=== PATIENT | female | born 1940 | race Caucasian/White ===

== ENCOUNTER 2017-05-28 14:41 | Emergency (ER) | payer OTHER, MEDICARE ==
[2017-05-28 14:45] VITALS: BP 143/90; PULSE 91; TEMP 98.5; BMI 21.7
--- NOTE | 2017-05-28 15:00 | PDOC ---
Attending Attestation - Resident Resident Name: Isabella Curiel - ED Attending Attestation I have performed the following: I have examined & evaluated the patient, The case was reviewed & discussed with the resident, I agree w/resident's findings & plan, Exceptions are as noted - HPI HPI: 05/28/17 14:58 76-year-old female with history of CAD s/p cardiac stent, rheumatoid arthritis, TIA on asa, plavix, bilateral total hip replacements, [id number] presents with left thumb subungual hematoma. Patient had accidentally slammed the door onto her left finger. Patient denies any bony tenderness is able to flex and extend her IP joint without difficulties. States that the pain is secondary to the throbbing sensation from the subungual hematoma. This occurred yesterday. 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 - Physicial Exam PE: 05/28/17 14:59 GENERAL: Awake, alert, and fully oriented, in no acute distress. HEAD: No signs of trauma EYES: PERRLA, EOMI, sclera anicteric, conjunctiva clear EXTREMITIES: Normal range of motion, no edema. No clubbing or cyanosis. No cords, erythema, or tenderness LUE: 2+ radial pulse. Sensation intact throughout. 1st digit: no tenderness along the IP or 1st metacarpal head. Brandon to fully flex and extend digit. <2 sec cap refill Approx 1x1 cm subungal hematoma with an intact nail. NEUROLOGICAL: Cranial nerves II through XII grossly intact. Normal speech, normal gait SKIN: Warm, Dry, normal turgor, no rashes or lesions noted. - Medical Decision Making 05/28/17 15:00 Vital Signs Temp Pulse Resp BP Pulse Ox 98.5 F 91 H 18 143/90 97 05/28/17 14:42 05/28/17 14:42 05/28/17 14:42 05/28/17 14:42 05/28/17 14:42 No clinical signs of fracture. We'll perform electrocautery trephination. Supportive care and follow-up primary care physician. 05/28/17 15:20 Trephination was successfully performed.
--- NOTE | 2017-05-28 15:05 | PDOC ---
History of Present Illness - General Chief Complaint: Injury Stated Complaint: LEFT THUMB INJURY Time Seen by Provider: 05/28/17 14:56 - History of Present Illness Initial Comments: 05/28/17 15:03 CC: L 1st digit subungual hematoma Patient is a 76 y.o. female with a PMH of TIA, Hypothyroidism, and CAD who presents with a L 1st digit subungal hematoma after slamming her thumb in a door yesterday (05/27) evening. Patient states she went to open a heavy door with a automatic hinge and she accidentally let go of the door slamming her thumb. Patient denies any difficulty moving her thumb or hand or wrist pain. Patient further denies any fevers, chest pain, shortness of breath or nausea or vomiting. Past History - Past Medical History Allergies/Adverse Reactions: Allergies Allergy/AdvReac Type Severity Reaction Status Date / Time No Known Allergies Allergy Verified 05/28/17 14:42 Home Medications: Ambulatory Orders Aspirin [ASA -] 81 mg PO DAILY 05/28/17 Atorvastatin Ca [Lipitor] 10 mg PO HS 05/28/17 Cholecalciferol (Vitamin D3) [Vitamin D3] 0 unit PO DAILY 05/28/17 Clopidogrel Bisulfate [Plavix -] 75 mg PO DAILY 05/28/17 Cyclosporine [Restasis Multidose] 1 drop OP BID 05/28/17 Fluticasone/Vilanterol [Breo Ellipta 200-25 Mcg INH] 1 inh IH DAILY 05/28/17 Hyoscyamine Sulfate [Hyoscyamine Sulfate ER] 0.375 mg PO BID 05/28/17 Levothyroxine Sodium [Synthroid] 88 mcg PO DAILY 05/28/17 Metoprolol Succinate [Toprol Xl -] 12.5 mg PO DAILY 05/28/17 Metoprolol Succinate [Toprol Xl -] 25 mg PO AM 05/28/17 Ranitidine [Zantac -] 150 mg PO DAILY 05/28/17 Sulfasalazine 500 mg PO BID 05/28/17 Tiotropium [place] [Spiriva] 1 inh PO DAILY 05/28/17 Asthma: Yes Cardiac Disorders: Yes (IRREGULAR HEART BEATS) CVA: Yes (TIA) GI Disorders: Yes Hypercholesterolemia: Yes Thyroid Disease: Yes (HYPO) Other medical history: RHUMATOID ARTHRITIS,DISLOCATED RIGHT TOTAL HIP - Surgical History Abdominal Surgery: Yes (BL HERNIA REPAIR) - Psycho/Social/Smoking Cessation Hx Anxiety: No Suicidal Ideation: No Smoking History: Never smoked Hx Alcohol Use: No Drug/Substance Use Hx: No Substance Use Type: None Review of Systems - Review of Systems Constitutional: No: Chills, Diaphoresis, Fever, Unintentional Wgt. 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 woman who presents with subungal hematoma after slamming her L first digit in a door. Patient was neurovasculary intact on PE, and had full ROM of the affected digit. Trephination of the hematoma was performed using a cautery. Patient was instructed to keep the wound clean and return to the ED should she experience severe pain, noticeable erythema, warmth or discharge. *DC/Admit/Observation/Transfer Diagnosis at time of Disposition: Subungual hematoma of left thumb - Discharge Dispostion Disposition: HOME Condition at time of disposition: Good - Patient Instructions Additional Instructions: You were evaluated and treated today for a subungual hematoma of your L thumb. The hematoma was drained via cautery. Please keep the treated area clean and your nail should grow in normally in 3-4 months. Please return to the Emergency Department if there are any signs of infection including warmth, redness, pain, discharge, fever or severe discomfort.
== END 2017-05-28 15:23 | disposition home or self-care (01) ==
LOC: FER 14:41
PROC: 0H9QXZZ Drainage of Finger Nail, External Approach (ICD-10-PCS; principal; 2017-05-28)
DX: S60.112A Contusion of left thumb with damage to nail, initial encounter (principal); I25.10 Atherosclerotic heart disease of native coronary artery without angina pectoris; E03.9 Hypothyroidism, unspecified; Z86.73 Personal history of transient ischemic attack (TIA), and cerebral infarction without residual deficits; M06.9 Rheumatoid arthritis, unspecified; W20.8XXA Other cause of strike by thrown, projected or falling object, initial encounter; Y93.89 Activity, other specified; Y92.810 Car as the place of occurrence of the external cause; Y99.9 Unspecified external cause status
CPT/HCPCS: 99281-25

== ENCOUNTER 2023-01-15 10:52 | Observation (INO) | payer OTHER, MEDICARE ==
[2023-01-15] MEDS ORDERED: DIPHTH,PERTUSS(ACELL),TET 0.5 ML DISP.SYRIN IM ONE ×2 (11:25→11:48)
[2023-01-15] MEDS ORDERED: ACETAMINOPHEN 500 MG TABLET (FP) PO ONE (11:25)
[2023-01-15] MEDS ORDERED: ACETAMINOPHEN 500 MG TABLET (FP) ONE (11:47)
[2023-01-15] MEDS ORDERED: LIDOCAINE 5% TOPICAL PATCH TP ONE (15:58)
[2023-01-15] MEDS ORDERED: LIDOCAINE 5% TOPICAL PATCH ONE (16:07)
[2023-01-15] MEDS ORDERED: LACTATED RINGERS SOLUTION 1,000 ML IV SCH (18:15)
[2023-01-15 18:29] LABS: HEMATOCRIT 37.6 % (32.4-45.2); HEMOGLOBIN 13.1 GM/dL (10.7-15.3); MCH 30.2 pg (25.7-33.7); MCHC 34.9 g/dl (32.0-36.0); MEAN CELL VOLUME 86.6 fl (80-96); MEAN PLT VOLUME 7.5 fl (7.5-11.1); PLATELET COUNT 144 10^3/uL (134-434); RBC 4.34 M/mm3 (3.60-5.2); RDW 14.6 % (11.6-15.6); WHITE BLOOD COUNT 7.1 K/mm3 (4.0-10.0)
[2023-01-15 19:00] LABS: ALBUMIN 3.6 g/dl (3.4-5.0); BLOOD UREA NITROGEN 16.8 mg/dL (7-18); CALCIUM 8.8 mg/dL (8.5-10.1)
[2023-01-15 19:03] LABS: CREATININE 0.8 mg/dL (0.55-1.3)
[2023-01-15 19:05] LABS: BILIRUBIN,TOTAL 0.7 mg/dL (0.2-1); TOT PROT 6.4 g/dl (6.4-8.2)
[2023-01-15] MEDS ORDERED: ATORVASTATIN CA 80 MG TABLET (FP) ONE (21:56)
[2023-01-15] MEDS: LIDOCAINE PATCH REMOVAL MC SCH (22:06)
[2023-01-15] MEDS: ATORVASTATIN CA 80 MG TABLET (FP) PO SCH (22:06)
[2023-01-15] MEDS ORDERED: ACETAMINOPHEN 325 MG TABLET (FP) ONE (22:11)
[2023-01-15] MEDS: ACETAMINOPHEN 325 MG TABLET (FP) PO PRN (22:24)
[2023-01-16 03:59] VITALS: RESP 20; BMI 19.3
[2023-01-16] MEDS: LEVOTHYROXINE NA 88 MCG TABLET (FP) PO SCH (06:24)
[2023-01-16] MEDS ORDERED: CLOPIDOGREL BISULFATE 75 MG TABLET (FP) PO SCH (10:00)
[2023-01-16] MEDS ORDERED: TIOTROPIUM BROMIDE 2.5 MCG (SPIRIVA) RESPIMAT INHALER IH SCH (10:00)
[2023-01-16 10:26] LABS: BASO % 0.2 % (0-2.0); EOS % 0.2 % (0-4.5); HEMOGLOBIN 13.1 GM/dL (10.7-15.3); LYMPH % 6.1 % (8-40); MCH 29.9 pg (25.7-33.7); MCHC 34.5 g/dl (32.0-36.0); MEAN CELL VOLUME 86.7 fl (80-96); MEAN PLT VOLUME 7.7 fl (7.5-11.1); MONO % 6.3 % (3.8-10.2); NEUT % 87.2 % (42.8-82.8); PLATELET COUNT 137 10^3/uL (134-434); RBC 4.38 M/mm3 (3.60-5.2); RDW 14.8 % (11.6-15.6); WHITE BLOOD COUNT 7.5 K/mm3 (4.0-10.0)
[2023-01-16 10:33] LABS: INR 1.38 (0.83-1.09); PROTHROMBIN TIME (PATIENT) 15.9 SEC (9.7-13.0)
[2023-01-16 10:34] LABS: ACTIVATED PTT 29.8 SECONDS (25.2-36.5)
[2023-01-16] MEDS: FLUTICASONE/UMECLIDIN/VILANTER(200-62.5-25 TRELEGY ELLIPTA) INAHLER IH SCH (10:36)
[2023-01-16] MEDS: metoPROLOL SUCCINATE 25 MG TAB.SR.24H (FP) PO SCH (10:36)
[2023-01-16] MEDS: ENOXAPARIN NA (PORCINE) 40 MG/0.4 ML DISP.SYRIN SQ SCH (10:36)
[2023-01-16] MEDS: PANTOPRAZOLE 40 MG TABLET PO SCH (10:36)
[2023-01-16] MEDS: ASPIRIN 81 MG CHEWABLE TABLETS PO SCH (10:36)
[2023-01-16 10:43] LABS: BLOOD UREA NITROGEN 14.2 mg/dL (7-18); CALCIUM 8.4 mg/dL (8.5-10.1)
[2023-01-16 10:44] LABS: ALBUMIN 3.4 g/dl (3.4-5.0); MAGNESIUM 1.9 mg/dL (1.8-2.4)
[2023-01-16 10:47] LABS: CREATININE 0.5 mg/dL (0.55-1.3); PHOSPHOROUS 2.7 mg/dL (2.5-4.9)
[2023-01-16 10:48] LABS: TOT PROT 6.3 g/dl (6.4-8.2)
[2023-01-16 10:49] LABS: BILIRUBIN,TOTAL 0.9 mg/dL (0.2-1)
[2023-01-16] MEDS: ACETAMINOPHEN 325 MG TABLET (FP) PO PRN (12:47)
[2023-01-16] MEDS: guaiFENesin 200 MG/10 ML 10 ML UNIT-DOSE CUPS PO PRN (12:47)
[2023-01-16] MEDS ORDERED: ETHAMBUTOL HCL 100 MG TABLET PO SCH ×2 (13:15→14:29)
[2023-01-16] MEDS ORDERED: RIFABUTIN 150 MG CAPSULE PO SCH (15:00)
[2023-01-16] MEDS: AZITHROMYCIN 250 MG TABLET PO SCH (15:23)
[2023-01-16] MEDS: ETHAMBUTOL HCL PO SCH (15:23)
[2023-01-16] MEDS ORDERED: ETHAMBUTOL HCL 400 MG TABLET PO SCH (22:00)
[2023-01-16] MEDS: ATORVASTATIN CA 80 MG TABLET (FP) PO SCH (22:19)
[2023-01-16] MEDS: LIDOCAINE PATCH REMOVAL MC SCH (22:22)
[2023-01-17] MEDS: ACETAMINOPHEN 325 MG TABLET (FP) PO PRN (01:29)
[2023-01-17] MEDS: guaiFENesin 200 MG/10 ML 10 ML UNIT-DOSE CUPS PO PRN ×2 (01:30→09:42)
[2023-01-17] MEDS: LEVOTHYROXINE NA 88 MCG TABLET (FP) PO SCH (06:22)
[2023-01-17] MEDS: ETHAMBUTOL HCL PO SCH (09:42)
[2023-01-17] MEDS: ASPIRIN 81 MG CHEWABLE TABLETS PO SCH (09:42)
[2023-01-17] MEDS: AZITHROMYCIN 250 MG TABLET PO SCH (09:42)
[2023-01-17] MEDS: PANTOPRAZOLE 40 MG TABLET PO SCH (09:42)
[2023-01-17] MEDS: ENOXAPARIN NA (PORCINE) 40 MG/0.4 ML DISP.SYRIN SQ SCH (09:42)
[2023-01-17] MEDS: FLUTICASONE/UMECLIDIN/VILANTER(200-62.5-25 TRELEGY ELLIPTA) INAHLER IH SCH (09:43)
[2023-01-17] MEDS: metoPROLOL SUCCINATE 25 MG TAB.SR.24H (FP) PO SCH (09:43)
[2023-01-17 09:55] LABS: BASO % 0.2 % (0-2.0); EOS % 0.5 % (0-4.5); HEMATOCRIT 39.6 % (32.4-45.2); HEMOGLOBIN 13.9 GM/dL (10.7-15.3); LYMPH % 7.7 % (8-40); MCH 30.7 pg (25.7-33.7); MCHC 35.2 g/dl (32.0-36.0); MEAN CELL VOLUME 87.4 fl (80-96); NEUT % 85.6 % (42.8-82.8); PLATELET COUNT 143 10^3/uL (134-434); RBC 4.53 M/mm3 (3.60-5.2); RDW 14.6 % (11.6-15.6); WHITE BLOOD COUNT 6.8 K/mm3 (4.0-10.0)
[2023-01-17] MEDS ORDERED: RIFABUTIN 150 MG CAPSULE PO SCH (10:00)
[2023-01-17 10:23] LABS: CALCIUM 8.6 mg/dL (8.5-10.1)
[2023-01-17 10:24] LABS: ALBUMIN 3.6 g/dl (3.4-5.0); BLOOD UREA NITROGEN 11.5 mg/dL (7-18); MAGNESIUM 1.9 mg/dL (1.8-2.4)
[2023-01-17 10:27] LABS: CREATININE 0.6 mg/dL (0.55-1.3)
[2023-01-17 10:28] LABS: BILIRUBIN,TOTAL 1.1 mg/dL (0.2-1); TOT PROT 7.1 g/dl (6.4-8.2)
[2023-01-17] MEDS ORDERED: HYDROXYCHLOROQUINE SO4 200 MG TABLET (FP) PO SCH (12:00)
[2023-01-17] MEDS ORDERED: POTASSIUM CHLORIDE TABS 20 MEQ TABLET.ER (FP) PO SCH (12:00)
[2023-01-17] MEDS ORDERED: ATORVASTATIN CA 20 MG TABLET (FP) PO SCH (15:35)
[2023-01-17 17:32] VITALS: BP 116/60; PULSE 90; TEMP 99.2
[2023-01-17] MEDS ORDERED: metoPROLOL SUCCINATE 25 MG TAB.SR.24H (FP) PO SCH (22:00)
== END 2023-01-17 19:39 ==
LOC: JER 10:52 → JERBED 18:24 → J8W 01-16 01:53
PROVIDERS: ADMIT Internal Medicine; ATTEND Internal Medicine
PROC: 3E0234Z Introduction of Serum, Toxoid and Vaccine into Muscle, Percutaneous Approach (ICD-10-PCS; principal; 2023-01-15)
PROC: 3E023GC Introduction of Other Therapeutic Substance into Muscle, Percutaneous Approach (ICD-10-PCS; 2023-01-15)
DX: S09.90XA Unspecified injury of head, initial encounter (principal); W18.39XA Other fall on same level, initial encounter; Y93.89 Activity, other specified; Y92.89 Other specified places as the place of occurrence of the external cause; U07.1 COVID-19; E03.9 Hypothyroidism, unspecified; I10 Essential (primary) hypertension; J44.9 Chronic obstructive pulmonary disease, unspecified; I71.40 Abdominal aortic aneurysm, without rupture, unspecified; M06.9 Rheumatoid arthritis, unspecified; M48.00 Spinal stenosis, site unspecified; M81.0 Age-related osteoporosis without current pathological fracture
CPT/HCPCS: 0241U-QW; 36415; 70450-TC; 71045-TC-FY; 71250-TC; 72125-TC; 72128-TC; 72131-TC; 72170-TC-FY; 73502-TC-RT-FY; 80053; 83735; 84100; 85025; 85027; 85379; 85610; 85730; 86140; 90471; 90715; 93005; 93010; 96372; 97116-GP; 99285-25; G0378

== ENCOUNTER 2023-09-21 12:43 | Emergency (ER) | payer OTHER, MEDICARE ==
[2023-09-21 13:34] VITALS: BP 128/73; PULSE 78; RESP 18; TEMP 98.1; BMI 20.9
== END 2023-09-21 16:23 | disposition home or self-care (01) ==
LOC: FER 12:43
DX: M79.601 Pain in right arm (principal)
CPT/HCPCS: 72170-TC-FY; 73070-TC-LT-FY; 73090-TC-RT-FY; 73610-TC-LT-FY; 73630-TC-LT; 93971-TC; 99284-25

== ENCOUNTER 2023-12-13 11:38 | Emergency (ER) | payer OTHER, MEDICARE ==
[2023-12-13 12:29] VITALS: BP 137/92; PULSE 88; RESP 16; TEMP 98.4; BMI 19.6
== END 2023-12-13 16:22 | disposition home or self-care (01) ==
LOC: FER 11:38
DX: M25.552 Pain in left hip (principal); W01.0XXA Fall on same level from slipping, tripping and stumbling without subsequent striking against object, initial encounter
CPT/HCPCS: 70450-TC; 72125-TC; 72170-TC-FY; 73521-TC-FY; 73552-TC-LT-FY; 99284-25

== ENCOUNTER 2024-05-07 17:52 | Emergency (ER) | payer OTHER, MEDICARE ==
[2024-05-07 17:57] VITALS: BP 153/71; PULSE 84; RESP 20; TEMP 98.2; BMI 19.2
[2024-05-07] MEDS: CEPHALEXIN MONOHYDRATE 500 MG CAPSULE (UD) PO ONE (18:31)
[2024-05-07] MEDS ORDERED: CEPHALEXIN MONOHYDRATE 500 MG CAPSULE (UD) ONE (18:37)
== END 2024-05-07 19:07 | disposition home or self-care (01) ==
LOC: FER 17:52
DX: L03.116 Cellulitis of left lower limb (principal)
CPT/HCPCS: 73590-TC-LT-FY; 99283-25

== ENCOUNTER 2024-05-22 18:56 | Emergency (ER) | payer OTHER, MEDICARE ==
[2024-05-22 19:02] VITALS: BP 152/73; PULSE 93; RESP 18; TEMP 98.2; BMI 19.7
[2024-05-22] MEDS ORDERED: VANCOMYCIN 500 MG VIAL (RESTRICTED TO ID ONLY) ONE (19:44)
[2024-05-22] MEDS ORDERED: PIPERACILLIN/TAZOBACTAM 4.5 GM VIAL IVPB ONE (19:44)
[2024-05-22] MEDS: PIPERACILLIN/TAZOB 2.25 GM 2.25 GM in DEXTROSE 5%-WATER - 50 ML IVPB ONE (19:53)
[2024-05-22 20:07] LABS: HEMATOCRIT 41.4 % (32.4-45.2); HEMOGLOBIN 13.3 G/dL (10.7-15.3); MCH 28.5 pg (25.7-33.7); MCHC 32.2 g/dl (32.0-36.0); MEAN CELL VOLUME 88.4 fl (80-96); MEAN PLT VOLUME 7.9 fl (7.5-11.1); PLATELET COUNT 181.7 10^3/uL (134-434); RBC 4.68 10^6/uL (3.60-5.2); RDW 15.2 % (11.6-15.6); WHITE BLOOD COUNT 6.3 10^3/uL (4.0-10.8)
[2024-05-22 20:17] LABS: ALBUMIN 4.4 g/dl (3.4-5.0); BILIRUBIN,TOTAL 0.8 mg/dl (0.2-1); CALCIUM 9.7 mg/dl (8.5-10.1); CREATININE 0.6 mg/dl (0.6-1.3); POTASSIUM 3.4 mmol/L (3.5-5.1); TOT PROT 6.9 g/dl (6.4-8.2)
[2024-05-22] MEDS: [UNRECOGNIZED DRUG - OTHER] IVPB ONE (20:54)
[2024-05-22] MEDS: VANCOMYCIN IVPB ONE (20:54)
== END 2024-05-22 21:50 | disposition home or self-care (01) ==
LOC: FER 18:56
DX: L03.116 Cellulitis of left lower limb (principal)
CPT/HCPCS: 36415; 80053; 85027; 96365; 96375; 99284-25

== ENCOUNTER 2024-06-08 21:38 | Emergency (ER) | payer OTHER, MEDICARE ==
[2024-06-08 21:46] VITALS: BP 151/88; PULSE 77; RESP 18; TEMP 97.5; BMI 19.4
[2024-06-08] MEDS ORDERED: AMOX TR/POT CLAV 875MG/125MG TABLETS (FP) ONE (22:31)
[2024-06-08] MEDS: AMOX TR/POT CLAV 875MG/125MG TABLETS (FP) PO ONE (22:34)
== END 2024-06-08 22:41 | disposition home or self-care (01) ==
LOC: FER 21:38
DX: S51.852A Open bite of left forearm, initial encounter (principal); W55.01XA Bitten by cat, initial encounter
CPT/HCPCS: 99283-25

== ENCOUNTER 2024-10-18 19:22 | Inpatient (IN) | payer OTHER, MEDICARE ==
[2024-10-18 22:50] LABS: INR 1.34 (0.83-1.09); PROTHROMBIN TIME (PATIENT) 15.1 SEC (9.7-13.0)
[2024-10-18 22:51] LABS: HEMATOCRIT 43.2 % (32.4-45.2); HEMOGLOBIN 14.2 G/dL (10.7-15.3); MCH 29.1 pg (25.7-33.7); MCHC 32.8 g/dl (32.0-36.0); MEAN CELL VOLUME 88.8 fl (80-96); MEAN PLT VOLUME 8.6 fl (7.5-11.1); PLATELET COUNT 196.4 10^3/uL (134-434); RBC 4.86 10^6/uL (3.60-5.2); RDW 14.2 % (11.6-15.6); WHITE BLOOD COUNT 9.6 10^3/uL (4.0-10.8)
[2024-10-18 23:02] LABS: ALBUMIN 4.7 g/dl (3.4-5.0); ALK PHOS 68 U/L (45-117); ANION GAP 9 mmol/L (4-13); BILIRUBIN,TOTAL 1.2 mg/dl (0.2-1); CALCIUM 9.8 mg/dl (8.5-10.1); CHLORIDE 103 mmol/L (98-107); CO2 28 mmol/L (21-32); CREATININE 0.6 mg/dl (0.6-1.3); GLUCOSE,RANDOM 88 mg/dl (74-106); POTASSIUM 3.5 mmol/L (3.5-5.1); SGOT/AST 30 U/L (15-37); SGPT/ALT 22 U/L (7-52); SODIUM 140 mmol/L (136-145); TOT PROT 7.5 g/dl (6.4-8.2)
[2024-10-18 23:48] LABS: PLATELET ESTIMATE ADEQUATE
[2024-10-19 02:34] VITALS: BMI 19.9
[2024-10-19] MEDS: NYSTATIN 500,000 UNITS/5 ML SUSPENSION PO SCH (02:38)
[2024-10-19 06:24] VITALS: RESP 18
[2024-10-19 08:14] LABS: CALCIUM 9.1 mg/dl (8.5-10.1); CREATININE 0.5 mg/dl (0.6-1.3); PHOSPHOROUS 3.7 (2.5-4.9); POTASSIUM 3.6 mmol/L (3.5-5.1)
[2024-10-19] MEDS ORDERED: ENOXAPARIN NA (PORCINE) 40 MG/0.4 ML DISP.SYRIN SQ SCH (10:00)
[2024-10-19] MEDS: ASPIRIN 81 MG CHEWABLE TABLETS PO SCH (10:23)
[2024-10-19] MEDS: FLUTICASONE/UMECLIDIN/VILANTER(100-62.5-25 TRELEGY ELLIPTA) INAHLER IH SCH (10:24)
[2024-10-19 14:32] VITALS: BP 130/68; PULSE 76; TEMP 97.1
[2024-10-19] MEDS ORDERED: ATORVASTATIN CA 20 MG TABLET (FP) PO SCH (22:00)
== END 2024-10-19 20:03 | disposition home or self-care (01) | DRG 149 ==
LOC: FER 19:22 → FM/S 23:22 → UNDOADMIN 23:58 → FM/S 23:58
PROVIDERS: ADMIT Internal Medicine; ATTEND Internal Medicine
DX: R42 Dizziness and giddiness (principal); B37.0 Candidal stomatitis; I10 Essential (primary) hypertension; E78.00 Pure hypercholesterolemia, unspecified; J45.909 Unspecified asthma, uncomplicated; H55.00 Unspecified nystagmus; E03.9 Hypothyroidism, unspecified; M06.9 Rheumatoid arthritis, unspecified; M10.9 Gout, unspecified; M48.00 Spinal stenosis, site unspecified; M54.10 Radiculopathy, site unspecified; I25.10 Atherosclerotic heart disease of native coronary artery without angina pectoris; R29.6 Repeated falls; Z86.73 Personal history of transient ischemic attack (TIA), and cerebral infarction without residual deficits
CPT/HCPCS: 0241U-QW; 36415; 70360-TC-FY; 70450-TC; 70551-TC; 71045-TC-FY; 80048; 80053; 82607; 82746; 83735; 84100; 84439; 84443; 84484; 85025; 85610; 85730; 87651; 93005; 97116-GP; 97161-GP; 99285-25

== ENCOUNTER 2024-12-03 20:39 | Emergency (ER) | payer OTHER, MEDICARE ==
[2024-12-03 20:56] VITALS: BP 134/64; PULSE 64; RESP 16; TEMP 98.2; BMI 17.6
[2024-12-03] MEDS ORDERED: DIPHTH,PERTUSS(ACELL),TET 0.5 ML DISP.SYRIN IM ONE (22:12)
[2024-12-03] MEDS: DIPHTH,PERTUSS(ACELL),TET 0.5 ML DISP.SYRIN IM ONE (22:21)
== END 2024-12-03 22:21 | disposition home or self-care (01) ==
LOC: FER 20:39
PROC: 3E0234Z Introduction of Serum, Toxoid and Vaccine into Muscle, Percutaneous Approach (ICD-10-PCS; principal; 2024-12-03)
DX: S51.811A Laceration without foreign body of right forearm, initial encounter (principal); Z23 Encounter for immunization; W26.8XXA Contact with other sharp object(s), not elsewhere classified, initial encounter
CPT/HCPCS: 90471; 90715; 99284-25